=== PATIENT | female | born 2005 | race Caucasian/White ===

== ENCOUNTER 2025-02-01 18:04 | Emergency (ER) | payer OTHER, SELFPAY ==
[2025-02-01 19:20] LABS: Specific Gravity < 1.005 (1.005-1.030); Urine Bilirubin NEGATIVE (Negative); Urine Blood Negative (Negative); Urine Clarity Clear (Clear); Urine Color Colorless (Yellow); Urine Glucose NEGATIVE (Negative); Urine Ketones NEGATIVE (Negative); Urine Microscopic Reflex YN NO UMIC; Urine Nitrite NEGATIVE (Negative); Urine Protein NEGATIVE (Negative); Urine Urobilinogen Normal (Normal)
[2025-02-01 19:33] LABS: Specific Gravity < 1.005 (1.005-1.030)
[2025-02-01] MEDS ORDERED: ACETAMINOPHEN 500 MG TAB ONE (19:42)
[2025-02-01 20:05] LABS: Absolute Basophils 0.1 K/uL (0-0.5); Absolute Eosinophils 0.1 K/uL (0-0.5); Absolute Lymphocytes (CBC) 2.2 K/uL (0.7-4.9); Absolute Monocytes 0.6 K/uL (0.1-1.3); Absolute Neutrophil 8.6 K/uL (1.8-8.0); Basophils % 1.1 % (0-1.3); Eosinophils % 0.7 % (0-4.4); Hematocrit 27.5 % (36.0-45.0); Hemoglobin 9.9 g/dL (12.0-15.0); Lymphocytes % 18.8 % (15.3-44.8); MCH 31.6 pg (27.0-35.0); MCV 87.8 fL (80-100); MPV 8.1 fL (7.6-11.3); Monocytes % 5.5 % (3.3-12.3); Neutrophils % 73.9 % (41.7-73.7); Platelets 229 thou/uL (152-406); RBC Red Blood Cell Count 3.14 M/uL (3.86-4.86); Red Cell Distribution Width 13.4 % (12.1-15.2)
[2025-02-01 20:46] LABS: Anion Gap 8.4 mEq/L (5.0-15.0); Potassium 3.4 mEq/L (3.5-5.1)
[2025-02-01] MEDS ORDERED: NA CHLORIDE 0.9% 500 ML ONE (20:46)
[2025-02-01] MEDS ORDERED: POTASSIUM 25 MEQ EFFERV TAB ONE (21:16)
--- NOTE | 2025-02-01 21:18 | RAD REPORT ---
EXAM:OB Limited . CLINICAL HISTORY: with abdominal pain. Abd pain;Vaginal bleeding TECHNIQUE: Limited OB ultrasound performed. FINDINGS: Single live intrauterine fetus is present. Estimated gestational age is 16 weeks 3 days, SUZE . Heart rate is 143 bpm. The placenta is posterior. Amniotic fluid volume is subjectively normal. IMPRESSION: No acute finding is evident.
--- NOTE | 2025-02-01 21:28 | EDPHYS ---
Physician Documentation [facility] Name: Suze Dupree Age: 19 yrs Sex: Female : 2005 Arrival Date: 02/01/2025 Time: 18:04 Bed 11 Private MD: ED Physician Kain Simpson HPI: 02/01 18:45 This 19 yrs old Female presents to ER via Ambulatory with complaints of Abdominal Pain, cp Vaginal Bleeding, Headache. 18:45 The patient presents with abdominal pain right lower quadrant. Onset: The cp symptoms/episode began/occurred 2 week(s) ago. 18:45 The symptoms do not radiate. Associated signs and symptoms: Pertinent positives: cp possible , vaginal spotting that started today. 18:45 Severity of pain: in the emergency department the pain is unchanged despite home cp interventions. 18:45 Patient reports LMP was in December. Has not taken home . cp Historical: - Allergies: 18:33 No Known Allergies; iw - Home Meds: 18:33 None [Active]; iw - PMHx: 18:33 None; iw - PSHx: 18:33 Appendectomy; iw - Immunization history:: Adult Immunizations not up to date. - Infectious Disease History:: Denies. - Social history:: Smoking status: Reported history of juuling and/or vaping. ROS: 18:50 Eyes: Negative for injury, pain, redness, and discharge, cp 18:50 Constitutional: Negative for body aches, chills, fever, poor PO intake, 18:50 ENT: Negative for drainage from ear(s), ear pain, sore throat, difficulty swallowing, difficulty handling secretions, 18:50 Cardiovascular: Negative for chest pain, edema, palpitations, 18:50 Respiratory: Negative for cough, shortness of breath, wheezing, 18:50 Abdomen/GI: Positive for abdominal pain, Negative for nausea, vomiting, and diarrhea, 18:50 Back: Negative for pain at rest, pain with movement, 18:50 : Positive for vaginal bleeding, Negative for urinary symptoms, 18:50 Neuro: Positive for headache, Negative for altered mental status, dizziness, syncope, near syncope, weakness, 18:50 All other systems are negative, Exam: 18:55 Constitutional: The patient appears in no acute distress, alert, awake, non-toxic, well cp developed, well nourished, 18:55 Head/Face: Normocephalic, atraumatic. cp 18:55 Eyes: Periorbital structures: appear normal, Sclera: no appreciated abnormality, Lids and lashes: appear normal, bilaterally, 18:55 ENT: External ear(s): are unremarkable, Nose: is normal, Mouth: Lips: moist, Oral mucosa: moist, Posterior pharynx: Airway: no evidence of obstruction, patent, 18:55 Chest/axilla: Inspection: normal, 18:55 Cardiovascular: Rate: normal, Rhythm: regular, 18:55 Respiratory: the patient does not display signs of respiratory distress, Respirations: normal, no use of accessory muscles, no retractions, labored breathing, is not present, Breath sounds: are clear throughout, no decreased breath sounds, no stridor, no wheezing, 18:55 Abdomen/GI: Inspection: abdomen appears normal, Bowel sounds: active, all quadrants, Palpation: soft, in all quadrants, mild abdominal tenderness, in the right lower quadrant and left lower quadrant, rebound tenderness, is not appreciated, involuntary guarding, is not appreciated, 18:55 Back: CVA tenderness, is absent, 18:55 Neuro: Orientation: to person, place \T\ time. Mentation: is normal, Motor: moves all fours, strength is normal, Sensation: is normal, Vital Signs: 18:32 BP 108 / 65; Pulse 66; Resp 16; Pulse Ox 100% on R/A; Weight 47.17 kg; Height 4 ft. 11 iw in. ; Pain 5/10; 19:16 BP 101 / 66; Pulse 69; Resp 17; Pulse Ox 99% ; jj7 20:30 BP 90 / 60; Pulse 70; Resp 17; Pulse Ox 98% ; jj7 21:30 BP 100 / 62; Pulse 73; Resp 17; Pulse Ox 98% ; jj7 21:48 BP 95 / 61; Pulse 72; Resp 18; Temp 98.1; Pulse Ox 100% ; Pain 0/10; jj7 18:32 Body Mass Index 21.00 (47.17 kg, 149.86 cm) - Percentile 24.5 % iw 18:32 Pain Scale: Adult iw 21:48 Pain Scale: Adult jj7 MDM: 18:33 Medical Screening Exam initiated cp 20:00 Differential diagnosis: Ectopic , non-specific abd pain, Ovarian Torsion, cp Pelvic Inflammatory Disease, Pyelonephritis, Ureterolithiasis, urinary tract infection. 21:28 Data reviewed: vital signs, nurses notes, lab test result(s), radiologic studies, cp ultrasound, and as a result, I will discharge patient. 21:28 I considered the following discharge prescriptions or medication management in the emergency department Medications were administered in the Emergency Department. See MAR. 21:28 Counseling: I had a detailed discussion with the patient and/or guardian regarding the historical points, exam findings, and any diagnostic results supporting the discharge/admit diagnosis, lab results, radiology results, the need for outpatient follow up, an OB/Gyne specialist, to return to the emergency department if symptoms worsen or persist or if there are any questions or concerns that arise at home. Special discussion: Based on the patient's Hx, exam, and Dx evaluation, there is no indication for emergent surgery or inpatient Tx. It is understood by the patient/guardian that if the Sx's persist or worsen they need to return immediately for re-evaluation. 02/01 18:43 Order name: Abo/rh Typing; Complete Time: 20:59 02/01 21:00 Interpretation: Reviewed. 02/01 18:43 Order name: Basic Metabolic Panel 02/01 21:00 Interpretation: Normal except: K 3.4; BUN 5; CRE 0.48. 02/01 18:43 Order name: CBC with Diff; Complete Time: 20:19 02/01 21:00 Interpretation: Normal except: WBC 11.70; RBC 3.14; HGB 9.9; HCT 27.5; PAUL% 73.9; NEUT cp A 8.6. 02/01 18:43 Order name: Test, Urine; Complete Time: 19:37 02/01 19:37 Interpretation: Reviewed. 02/01 18:43 Order name: Quantitative Hcg 02/01 18:43 Order name: Urinalysis w/ reflexes; Complete Time: 19:37 02/01 21:00 Interpretation: Reviewed. 02/01 20:37 Order name: OB Limited; Complete Time: 21:23 EDMS 02/01 21:23 Interpretation: Report reviewed. 02/01 18:43 Order name: IV Saline Lock; Complete Time: 19:57 02/01 18:43 Order name: Labs collected and sent; Complete Time: 19:57 cp 02/01 18:43 Order name: NPO; Complete Time: 19:57 cp Administered Medications: 19:50 Drug: Acetaminophen PO 500 mg PO once Route: PO; 21:02 Follow up: Response: Marked relief of symptoms 21:01 Drug: NS 0.9% IV 500 ml 500 ml IV at 1 bolus once; to be given as a bolus over 30 jj7 minutes Volume: 500 ml; Route: IV; Rate: 1 bolus; Site: left antecubital; 21:50 Follow up: IV Status: Completed infusion 21:27 Drug: Potassium PO Effervescent Tablet 25 mEq PO once; dissolve in 4 ounces of water or jj7 juice Route: PO; 21:50 Follow up: Response: No adverse reaction Disposition Summary: 02/01/25 21:28 Discharge Ordered Notes: Location: Home cp Problem: new cp Symptoms: have improved cp Condition: Stable cp Diagnosis - Threatened cp - 16 weeks gestation of cp - Other specified related conditions, second trimester cp - Abdominal pain, unspecified cp - Anemia, unspecified cp Followup: cp - With: Private Physician - When: 5 - 6 days - Reason: Recheck today's complaints Discharge Instructions: - Discharge Summary Sheet cp - Abdominal Pain During cp - Care cp - Threatened Miscarriage cp - Vaginal Bleeding During , Second Trimester cp - and the Partner's Role cp - Activity Restriction During cp Forms: - Medication Reconciliation Form cp - Antibiotic Education cp - Prescription Opioid Use cp - Patient Portal Instructions cp - Leadership Thank You Letter cp Prescriptions: - Ferrous Sulfate 325 mg (65 mg Iron) Oral tablet - take 1 tablet ORAL route once daily; 20 tablet; Refills: 0, Product Selection cp Permitted Addendum: 02/03/2025 08:58 Co-signature as Attending Physician, Kain Simpson MD I agree with the assessment and c swain plan of care. Signatures: Dispatcher [employer] Kain Vance MD MD cha Williams, Irene, RN RN Kain Sheridan PA PA cp Johnson, Juwairiyah, RN RN jj7 Corrections: (The following items were deleted from the chart) 02/01 18:44 18:44 ABO/RH TYPING+BB.LAB.BRZ ordered. EDMS EDMS 18:44 18:44 BASIC METABOLIC PANEL+C.LAB.BRZ ordered. EDMS EDMS 18:44 18:44 CBC+H.LAB.BRZ ordered. EDMS EDMS 18:44 18:44 Test, Urine+UC.LAB.BRZ ordered. EDMS EDMS 18:44 18:44 QUANTITATIVE HCG+C.LAB.BRZ ordered. EDMS EDMS 18:44 18:44 Urinalysis+U.LAB.BRZ ordered. EDMS EDMS 20:37 20:20 Transvaginal Ob+US.RAD.BRZ ordered. EDMS EDMS 02/02 18:14 04 18:45 The patient presents with abdominal pain vaginal bleeding. cp cp 02/02 21: 21:00 Constitutional: Negative for body aches, chills, fever, poor PO intake, cp cp : 21:00 Cardiovascular: Negative for chest pain, edema, palpitations, cp cp : 21:00 Respiratory: Negative for cough, shortness of breath, wheezing, cp cp : 21:00 Abdomen/GI: Positive for abdominal pain, Negative for nausea, vomiting, and cp diarrhea, cp : 21:00 Eyes: Negative for injury, pain, redness, and discharge, cp cp : 21:00 ENT: Negative for drainage from ear(s), ear pain, sore throat, difficulty cp swallowing, difficulty handling secretions, cp : 21:00 : Positive for vaginal bleeding, Negative for urinary symptoms, cp cp : 21:00 Back: Negative for pain at rest, pain with movement, cp cp : 21:00 Neuro: Positive for headache, Negative for altered mental status, dizziness, cp syncope, near syncope, weakness, cp : 21:00 All other systems are negative, cp cp
--- NOTE | 2025-02-01 21:28 | ER ---
Nurse's Notes [facility] Name: Suze Dupree Age: 19 yrs Sex: Female : 2005 Arrival Date: 02/01/2025 Time: 18:04 Bed 11 Private MD: Diagnosis: Threatened ;16 weeks gestation of ;Other specified related conditions, second trimester;Abdominal pain, unspecified;Anemia, unspecified Presentation: 02/01 18:32 Chief complaint: Patient states: RLQ pain X 2 weeks, had some spotting today , thinks iw she could be . LMP was beginning of December. Coronavirus screen: At this time, the client does not indicate any symptoms associated with coronavirus-19. Ebola Screen: No symptoms or risks identified at this time. Initial Sepsis Screen: Does the patient meet any 2 criteria? No. Patient's initial sepsis screen is negative. Does the patient have a suspected source of infection? No. Patient's initial sepsis screen is negative. Risk Assessment: Do you want to hurt yourself or someone else? Patient reports no desire to harm self or others. Onset of symptoms was January 18, 2025. 18:32 Method Of Arrival: Ambulatory iw 18:32 Acuity: IRISH 3 iw Historical: - Allergies: 18:33 No Known Allergies; iw - Home Meds: 18:33 None [Active]; iw - PMHx: 18:33 None; iw - PSHx: 18:33 Appendectomy; iw - Immunization history:: Adult Immunizations not up to date. - Infectious Disease History:: Denies. - Social history:: Smoking status: Reported history of juuling and/or vaping. Screenin:[facility] ED Fall Risk Assessment (Adult) History of falling in the last 3 months, jj7 including since admission No falls in past 3 months (0 pts) Confusion or Disorientation No (0 pts) Intoxicated or Sedated No (0 pts) Impaired Gait No (0 pts) Mobility Assist Device Used No (0 pt) Altered Elimination No (0 pt) Score/Fall Risk Level 0 - 2 = Low Risk Oriented to surroundings, Maintained a safe environment, Educated pt \T\ family on fall prevention, incl call for assistance when getting out of bed, Assessed \T\ reinforced patient's understanding of fall precautions. Abuse screen: Denies threats or abuse. Nutritional screening: No deficits noted. Tuberculosis screening: No symptoms or risk factors identified. Assessment: 19:16 Reassessment: ASSUMED CARE OF PT. PT SITTING IN BED. VS STABLE. CALL GONZALEZ IN REACH. jj7 FAMILY AT BEDSIDE. General: Appears in no apparent distress. comfortable, Behavior is calm, cooperative, appropriate for age. Pain: Complains of pain in right lower quadrant. GI: Bowel sounds present X 4 quads. Abd is soft X 4 quads Abdomen is tender to palpation in right lower quadrant. Vital Signs: 18:32 BP 108 / 65; Pulse 66; Resp 16; Pulse Ox 100% on R/A; Weight 47.17 kg; Height 4 ft. 11 iw in. ; Pain 5/10; 19:16 BP 101 / 66; Pulse 69; Resp 17; Pulse Ox 99% ; jj7 20:30 BP 90 / 60; Pulse 70; Resp 17; Pulse Ox 98% ; jj7 21:30 BP 100 / 62; Pulse 73; Resp 17; Pulse Ox 98% ; jj7 21:48 BP 95 / 61; Pulse 72; Resp 18; Temp 98.1; Pulse Ox 100% ; Pain 0/10; jj7 18:32 Body Mass Index 21.00 (47.17 kg, 149.86 cm) - Percentile 24.5 % iw 18:32 Pain Scale: Adult iw 21:48 Pain Scale: Adult jj7 ED Course: 18:07 Patient arrived in ED. im 18:08 Kain Chang PA is PHCP. cp 18:08 Tara Alvarado MD is Attending Physician. cp 18:33 Triage completed. iw 18:34 Arm band placed on. iw 19:16 Azeem Teran, CHAYO is Primary Nurse. jj7 19:16 Patient has correct armband on for positive identification. Bed in low position. Call jj7 light in reach. Adult w/ patient. Provided Education on: USE OF CALL GONZALEZ. Warm blanket given. 19:55 Inserted saline lock: 20 gauge in left antecubital area, using aseptic technique. Blood jj7 collected. Flushed with 10 mL NS. 20:53 OB Limited In Process Unspecified. EDMS 20:59 Kain Simpson MD is Attending Physician. cp 21:49 No provider procedures requiring assistance completed. IV discontinued, intact, jj7 bleeding controlled, No redness/swelling at site. Pressure dressing applied. Administered Medications: 19:50 Drug: Acetaminophen PO 500 mg PO once Route: PO; 7 21:02 Follow up: Response: Marked relief of symptoms j 21:01 Drug: NS 0.9% IV 500 ml 500 ml IV at 1 bolus once; to be given as a bolus over 30 jj7 minutes Volume: 500 ml; Route: IV; Rate: 1 bolus; Site: left antecubital; 21:50 Follow up: IV Status: Completed infusion j 21:27 Drug: Potassium PO Effervescent Tablet 25 mEq PO once; dissolve in 4 ounces of water or jj7 juice Route: PO; 21:50 Follow up: Response: No adverse reaction Medication: 19:16 VIS not applicable for this client. Outcome: 21:28 Discharge ordered by . cullen 21:49 Discharged to home ambulatory, with significant other, jj7 21:49 Condition: improved 21:49 Discharge instructions given to patient, family, Instructed on discharge instructions, follow up and referral plans. medication usage, Demonstrated understanding of instructions, follow-up care, medications, Prescriptions given X 1, 21:50 Patient left the ED. jj7 Signatures: Dispatcher [employer] EDMS Joanna Alvarado RN Kain Stevenson PA PA cp Johnson, Juwairiyah, RN RN jj7 Estephania Candelaria
[2025-02-01 22:23] VITALS: BP 95/61; TEMP 98.1; O2SAT 100
== END 2025-02-01 21:50 | disposition home or self-care (01) ==
LOC: EDSEX 18:04 → ER 18:04
DX: O20.0 Threatened abortion (principal); O99.012 Anemia complicating pregnancy, second trimester; Z3A.16 16 weeks gestation of pregnancy
CPT/HCPCS: 85025; 80048; 36415; 86900; 81025; 86901; 84702; 81003; 76815; J7040

== ENCOUNTER 2025-02-04 10:56 | Emergency (ER) | payer OTHER ==
--- OUTSIDE RECORDS SUMMARY | 2025-02-04 10:59 | XMS REPORT | Continuity of Care Document ---
Author Name Unknown Address [address] [facility] [place] [address] [facility] Address [address] [facility] [address] [place] [address] Care Team Providers Care Biological Lab Technician Name Role Phone Pcp, Pcp Primary Care Physician Tammy Cooper MD, Bernardo Lange Attending Clinician [phone] James Fatima MD Attending Clinician [phone] JAMES FATIMA Attending Clinician Unavaila ble Payers Payer Name Policy Type Policy Number Effective Date Expirati on Date Source [employer] [id number] 2024 00:00:00 Problems Condition Name Condition Details Condition Category Status Onset Date Resolution Date Last Treatment Date Treating Clinician Comments Source Bipolar affective disorder, currently depressed, mild (CMS/HCC) Bipolar affective disorder, currently depressed, mild (CMS/HCC) Disease Active 2023-10 00:00: 00 Yasmani Damon [facility] Social History Social Habit Start Date Stop Date Quantity Comments Source ASSERTION Possible [facility] Gender identity [facility] Sexual orientation [facility] History of Social function 2024-08-05 00:00:00 2024-08-05 00:00:00 [facility] Smoking Status Start Date Stop Date Source Tobacco smoking consumption unknown [facility] Medications Ordered Medication Name Filled Medication Name Start Date Stop Date Current Medication? Ordering Clinician Indication Dosage Frequency Signature (SIG) Comments Components Source QUEtiapine (SEROquel) 25 MG tablet QUEtiapine (SEROquel) 25 MG tablet 2023-10 00:32: 40 Yes 25mg Take 25 mg by mouth at bedtime. Memjesus Damon [facility] traZODone (Desyrel) 50 MG tablet traZODone (Desyrel) 50 MG tablet 2023-10 00:32: 40 Yes Take by mouth at bedtime. Yasmani Damon [facility] hydrOXYzine HCl (Atarax) 10 MG tablet hydrOXYzine HCl (Atarax) 10 MG tablet 2023-10 00:32: 40 Yes Take by mouth. Yasmani Damon [facility] sodium chloride (NS) 0.9 % flush 10 mL sodium chloride (NS) 0.9 % flush 10 mL 2023-10 23:00: 24 Yes 10mL [Order 1 Start] Name: Insert peripheral IV Signed Summary: Once, On Wed08/04/24 at 2301, For 1 occurrence [Order 1 End] [Order 2 Start] Name: Saline lock IV Signed Summary: Once, On Wed08/04/24 at 2301, For 1 occurrence [Order 2 End] [Order 3 Start] Name: sodium chloride (NS) 0.9 % flush 10 mL Signed Summary: 10 mL, Intravenou s, As needed, line care, Starting on Wed08/04/24 at 2300 [Order 3 End] Yasmani garcia [facility] Vital Signs Vital Name Observation Time Observation Value Comments S ource Systolic blood pressure 2024-08-06 00:27:00 104 mm[Hg] [facility] Diastolic blood pressure 2024-08-06 00:27:00 65 mm[Hg] [facility] Heart rate 2024-08-06 00:27:00 84 /min [facility] Body temperature 2024-08-06 00:27:00 37.17 Ena [facility] Respiratory rate 2024-08-06 00:27:00 17 /min [facility] Oxygen saturation in Arterial blood by Pulse oximetry 2024-08-06 00:27:00 98 /min [facility] Body weight 2024-08-04 22:45:00 47.446 kg [facility] BMI 2024-08-04 22:45:00 21.13 kg/m2 [facility] Body height 2024-08-04 22:45:00 149.9 cm [facility] Systolic blood pressure 2024-08-06 00:27:00 104 mm[Hg] Shanda nunez [facility] Diastolic blood pressure 2024-08-06 00:27:00 65 mm[Hg] Shanda nunez [facility] Heart rate 2024-08-06 00:27:00 84 /min [facility] f[facility] Body temperature 2024-08-06 00:27:00 37.17 Ena [facility] Respiratory rate 2024-08-06 00:27:00 17 /min [facility] Oxygen saturation in Arterial blood by Pulse oximetry 2024-08-06 00:27:00 98 /min Shanda nunez [facility] Body weight 2024-08-04 22:45:00 47.446 kg Michaeljayjay lockett [facility] BMI 2024-08-04 22:45:00 21.13 kg/m2 [facility] Body height 2024-08-04 22:45:00 149.9 cm [facility] Procedures Procedure Date / Time Performed Performing Clinician Source ECG 12-LEAD 2024-08-05 03:47:45 Shakir Gill [facility] UA WITH MICROSCOPIC NO CULTURE 2024-08-05 01:53:00 Shakir Gill [facility] DRUG SCREEN URINE (8 DRUGS) 2024-08-05 01:53:00 Shakir Gill [facility] BETA HCG QUALITATIVE URINE 2024-08-05 01:53:00 Shakir Gill [facility] CORONAVIRUS (COVID-19) [facility] ICU/ISOLATION 2024-08-05 00:23:00 Shakir Gill [facility] BASIC METABOLIC PANEL 2024-08-05 00:18:00 Rancho Gill [facility] HEPATIC FUNCTION PANEL 2024-08-05 00:18:00 Magno Gill [facility] SALICYLATE LEVEL 2024-08-05 00:18:00 Shakir Gill [facility] ACETAMINOPHEN LEVEL 2024-08-05 00:18:00 Maribel Gill [facility] ETHANOL LEVEL 2024-08-05 00:18:00 Shakir Gill [facility] COMPLETE BLOOD COUNT W/DIFF AND PLATELET 2024-08-05 00:18:00 Shakir Gill [facility] COMPLETE BLOOD COUNT 2024-08-05 00:18:00 BridgetCyril [facility] AUTOMATED DIFFERENTIAL 2024-08-05 00:18:00 Magno Gill [facility] ECG 12 lead (arrhythmia) Tong saenz [facility] Encounters Start Date/Time End Date/Time Encounter Type Admission Type Attending Clinicians Care Facility Care Department Encounter ID Source 2024-08-04 23:04:00 2024-08-06 00:31:[address] [facility] [id number] Yasmani garcia [place] 2024-08-04 23:04:00 2024-08-06 00:31:00 Emergency Emergency [facility] General Medicine [id number] [facility] Consult Notes Date/Time Note Provider Source 2024-08-05 07:51:28 PRT COMPREHENSIVE ASSESSMENT Introduction The Patient is a 19-year-old white, female presents to [facility] Emergency Room by walk-in due to increased AVH. The Psychiatric Response Team (PRT) was consulted for psychiatric evaluation and assistance with disposition to an appropriate level of care. The source of this information include: interview with the patient, consultation with the medical staff, and review of the medical chart. The evaluation conducted by Dali Esparza LCSW. Presentation This Clinician evaluated the Patient bedside in the [facility] ER, Room 12. The Patient was found to be in the hospital room, dressed in maroon scrubs, laying in her hospital bed. This Clinician introduced herself and explained her role with the PRT, as well as the process of evaluation. The patient agreed and was cooperative. Patient exhibits speech that is soft. Pt did not appear to be responding to internal stimuli. Mood presents as depressed. Affect is withdrawn/flat. Pts thinking is organized/logical and thought content logical. Cognitive functioning appears intact. This Patient is oriented X4. Insight into problems fair. Judgment appears impaired. Patient's behavior in the session was cooperative/guarded. Patient appears to be a capable historian. Pt has no eye contact. Clinician used unconditional positive regard, and warm acceptance to help establish trust with the patient. Empathy and support were provided for the patient's expression of thoughts and feelings during the evaluation. Current Hospitalization "I'm hearing voices and seeing stuff". She reports that this has been going for about a week and wants to go inpatient to get medications. She reports that AH was getting worse and then started VH. She reports she's been experiencing paranoia due to getting off drugs last year. Pt has difficulty expanding on sxs and is guarded when asked directly. Pt denies current SI/HI. She endorses current AH. Risk factors: current AVH, previous hospitalizations, non compliance with outpatient, lack on insight. Protective factors: supportive family, sabianist beliefs, hobbies, willingness to be treated. Based on current risk factors and presentation pt is recommended for voluntary transfer. MD, RN and clinician are agreeable. Behavior: Withdrawn Mood/Affect: Superficial Judgement: Impaired Mood/Affect: Superficial Symptomology Psychotic Symptoms: Visual hallucinations, Auditory hallucinations, Depressive Symptoms: Insomnia, Decrease in appetite/weight loss/weight gain, or hypersomnia SI: Pt denies SI current or hx. SH: She reports that "a long time ago" cutting on her thighs. She reports that this was about 1-2 yrs ago. Suicide attempts: denies HI: Pt denies current or hx. Psychosis: Endorses current AVH. She reports AH whispering in her ear constantly and makes it hard to focus in conversations. Denies CAH and reports that they tend to just talk about people. VH she reports shadows. She reports that now that she is off of drugs she has paranoia that people are trying to kid nap her or shoot at her. Other sxs: She reports that sleep has been bad due to staying up all night listening to voices. Appetite is okay but struggles when people are watching. Energy is okay. Interest/pleasure, and motivation are okay. She reports that the voices and paranoia are what keep her from going out. Diagnosis Patient Information Lives with aunt in [place], [place]. : unmarried Children: none Siblings: "I have a lot of siblings" and does not expand. Employed: unemployed SSDI/SSI: none Legal: Reports was in [facility] for about 1 mos and has been out for "a few mo". : none Education: 10th grade dropped out and started GED has not finished yet. Ethnicity: Not or Location Type: ER Current Situation: Psychosis Current Situation Details: Pt presents to ED due to worsening AH over the last couple of weeks and new VH. Denies SI/HI. Patient Displaying Harmful Behavior in the Hospital: N/A Social History Support Structure: cousins and brothers Spiritual connections: Muslim Activities, coping/healthy habits: like to draw and listen to music Cultural Factors Sex at : Female What is Your Current Gender Identity?: Identifies as female Race: White Cultural Impact on Treatment: None reported Living Situation Psychosocial History Living Situation: Private residence Household Composition: pt lives with her aunt Home Environment: Good Were housing issues addressed and/or referrals given?: No Caregiver Trauma History Trauma Trauma (Experienced or Witnessed): None reported Mental Health/Substance Use History Current UDS/BAL negative. Previous hospitalizations: She reports that he has been hospitalized 4 times for mental health but didn't want to continue her medications. Outpatient care: Sees a psychiatrist every mo. Medications: stopped taking zoloft , trazadone and seroquel. Previous dx: Bipolar. Reports that doctor suspects schizophrenia. 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 Rehab: none went to [facility] Family hx: parents- polysubstance Provider/Treatment History Provider History Have you ever been diagnosed with mental health condition?: Yes Explain: Bipolar. She reports that rcently her psychiatrist mentioned possible schizophrenia Are you currently connected with mental health providers?: Yes Psychotherapist: none Psychotherapist Contact Information: none Psychiatrist: [facility] Contact Information: unknown Have you ever been hospitalized at a Psychiatric Facility?: Yes Explain: Pt presents that has been hospitalized 4 times How many times have you been hospitalized?: see above Family Psychiatric History Family Psychiatric History Family History of Psychiatric Illness: Yes Relationship/Diagnosis: She reports that multiple people in her family have depression, anxiety, ADD, ADHD and Bipolar Additional Screenings AUDIT Alcohol Screening Score: DAST-10 Score: PRT Suicide Screening Violence Screening Sources of Information: Sources of Information Name Contact Relationship Comments Clinical records EHR review Clinical interview Usha Dupree self Legal Guardian: Name/Agency Contact Info Relationship Comments Usha Dupree [phone] Self Collateral Summary Pt does not wish to provide collateral information. Safety Plan Patient Able to Participate in Safety Plan: Patient Able to Participate in Safety Planning: No Evidence of Suicide Risk Age, Education, Hx of depression, Family hx of severe mental illness/suicide, Legal issues/Incarcerations, Mood and anxiety difficulties, Previous psych hospitalizations, Psychiatric illness Access to Lethal Means No Does individual have access to lethal means?: No Static Risks Age, Education, Hx of depression, Family hx of severe mental illness/suicide, Legal issues/Incarcerations, Mood and anxiety difficulties, Previous psych hospitalizations, Psychiatric illness Dynamic Risks Unemployment, Impulsivity (Poor compliance with medication/psych treatment) Protective Factors Hobbies, Supportive family/friends, Nondenominational/spiritural beliefs, Willingness to be treated Clinical Summary/Impression Medical Team Huddle: This clinician completed a medical team huddle with MD Rose and CHAYO Rodríguez (individually) on 08/05/24. The following recommendations and education provided: Behavioral Continuous Visual Monitoring Partner (CVMP): It was recommended to staff to continue use of Behavioral CVMP, as clinician is a working on transfer for pt to be sent to a psychiatric hospital for further stabilization. Behavioral CVMP is encouraged to monitor patient and develop rapport with pt to assist in sustaining their current crisis. Family/Friend Dynamics: Staff was encouraged to continue to allow the patient's support system to visit with the patient if they were to come to the hospital, but they were reminded that the visitation could be terminated if the patient became upset or agitated. Communication with Patient: The medical team was encouraged to maintain a healing environment in which the patient was able to communicate freely, feel supported or understood, and should be allowed to discuss their emotions without judgment. Psychiatric Safe Room: The patient does require a specific room located away from an exit and their room does require it to be made psychiatrically safe by implementing precautions that limit the patient's access to any possible weapons or items they may use to harm self with during their stay in the hospital. The patient's property should be secured with security. Pt should not be given any utensils and will require finger food trays only. The patient's room should be in the view of the RN station as to minimize the patient's risk of elopement. Environmental Stimuli: The patient's room should remain dimly lit for a more relaxing environment. The patient is able to watch the television if requested, but staff should limit the patient's access to violent or agitating material. The patient should not be allowed to roam the halls as this could increase the chances for the patient to attempt elopement from the hospital. Transfer Status: The patient currently meets criteria to receive inpatient mental health treatment and will be a voluntary transfer. The nurse was provided education regarding the transfer process and will update the pt and their family on the status of any consults or transfers. Medication Recommendations: Medication recommendations were not requested at this time. Clinical Recommendation: Voluntary Transfer recommended to MD Rose and CHAYO Rodríguez (individually). Pt's symptoms consistent with Bipolar disorder. Patient has been experiencing elevated amounts of stress and symptoms of lack of need for sleep, psychosis. Patient is a danger to themselves at this time. Their affect presents as flat/withdrawn. This patient can benefit from further monitoring and psychiatric hospitalization to stabilize their presentation. In addition, they have family support but is unable to engage in safety planning. Should the medical team need additional support in caring for this patient or have questions regarding this pt.'s care, please page the Psych Response Team. Voluntary patients who state that they no longer want to transfer to a psychiatric hospital MUST be detained until PRT can re-evaluate the patient or the decision to commit the patient has been made. Recommendation Disposition Plan: Transfer [facility] Recommendation: Continued Suicide Risk Level Stratification: No significant risk currently identified Team Huddle Treatment Team Huddle Completed?: Yes Treatment Team Huddle Barriers: None Treatment Team Huddle Details: MD RN (individually) Attending MD: MD Rose Attending MD: MD Rose RN: RN Mansoor Electronic Science Teacher: ARACELIS Labor Relations Manager: ARACELIS Shanda Damon Notes Date/Time Note Provider Source 2024-08-06 00:35:23 [facility] * Calculated C-SSRS Risk Score (Lifetime/Recent) Answer Date of Assessment Author No Risk Indicated 08/05/2024 9:57 PM CDT Walter Dominguez RN * Isabella Suicide Severity Rating Scale (Screener/Recent Self-Report) Question Answer Date of Assessment Author 1. Wish to be (Past 1 Month) No 024 9:57 PM CDT Walter Navarro, CHAYO 2. Non-Specific Active Suici brenden Thoughts (Past 1 Month) No 08/05/2024 9:57 PM CDT Honey Navarro, RN 6. Suicidal Behavior (Lifetime) No 9:57 PM CDT Walter Navarro, CHAYO [id number] 00:35:23Pending Results Health Maintenance Due Date Last Done Comments Varicella Vaccines (1 of 2 - 13+ 2-dose series) 2018 HPV Vaccines (1 - 3-dose series) 2020 DTaP/Tdap/Td Vaccines (1 - Tdap) 2024 Hepatitis B Vaccines (1 of 3 - 19+ 3-dose series) 2024 Influenza Vaccine (#1) 2024 HIB Vaccines Aged Out No longer eligi ble based on patient's age to complete this topic Hepatitis A Vaccines Aged Out No long er eligible based on patient's age to complete this topic IPV Vaccines Aged Out No longer eligi ble based on patient's age to complete this topic Meningococcal Vaccine Aged Out No carley daija eligible based on patient's age to complete this topic Pneumococcal Vaccine: Pediat rics (0 to 5 Years) and At-Risk Patients (6 to 64 Years) Aged Out No longer eligible b ased on patient's age to complete this topic Rotavirus Vaccines Aged Out No longer eligible based on patient's age to complete this topic [facility] [id number] 00:35:23 Diagnosis Bipolar affective disorder, currently depressed, mild (CMS/HCC) (HCC) - Primary Bipolar I disorder, most recent episode (or current) depressed, mild Bipolar affective disorder, currently depressed, mild (CMS/HCC) (HCC) [F31.31] Bipolar I disorder, most recent episode (or current) depressed, mild [facility] [id number] 00:35:23 [facility] [id number] 22:38:00 Associated Order(s): ECG 12 lead (arrhythmia) History of Present Illness: Chief Complaint: Patient presents with Psychiatric Evaluation Patient is a 19-year-old female with a history of bipolar disorder as well as chronic auditory hallucinations who presents for worsening hallucinations after stopping her psychiatric medications. Patient states she has been on Zoloft, trazodone, and Seroquel in the past. Patient states she is not having any suicidal thoughts at this time. States she is usually committed to the hospital and gets placed back on her medications until her psychiatric symptoms improved. No nausea or vomiting. No fever or chills. No recent stressing events. Does not smoke, drink, or drugs. History provided by: Patient Patient History History reviewed. No pertinent past medical history. History reviewed. No pertinent surgical history. No family history on file. Social History: Tobacco Use Smoking status: Not on file Smokeless tobacco: Not on file Substance Use Topics Alcohol use: Not on file Drug use: Not on file Review of Systems: Review of Systems Constitutional: Negative for chills and fever. HENT: Negative for ear pain and sore throat. Eyes: Negative for pain and visual disturbance. Respiratory: Negative for cough and shortness of breath. Cardiovascular: Negative for chest pain and palpitations. Gastrointestinal: Negative for abdominal pain and vomiting. Genitourinary: Negative for dysuria and hematuria. Musculoskeletal: Negative for arthralgias and back pain. Skin: Negative for color change and rash. Neurological: Negative for seizures and syncope. Psychiatric/Behavioral: Positive for hallucinations. Negative for agitation and suicidal ideas. The patient is nervous/anxious. All other systems reviewed and are negative. Physical Exam: Vitals and nursing note reviewed. Constitutional: General: She is not in acute distress. Appearance: Normal appearance. HENT: Head: Normocephalic and atraumatic. Eyes: Conjunctiva/sclera: Conjunctivae normal. Pulmonary: Effort: Pulmonary effort is normal. No respiratory distress. Abdominal: General: Abdomen is flat. There is no distension. Musculoskeletal: General: No swelling or deformity. Cervical back: Normal range of motion and neck supple. Skin: General: Skin is warm and dry. Findings: No rash. Neurological: General: No focal deficit present. Mental Status: She is alert. Psychiatric: Attention and Perception: She perceives auditory and visual hallucinations. Mood and Affect: Mood normal. Behavior: Behavior is not agitated or aggressive. Thought Content: Thought content is not paranoid. Thought content does not include homicidal or suicidal ideation. Triage Vitals: BP: 117/87, Heart Rate: 78, Temp: 36.7 ?C (98 ?F), Resp: 18, SpO2: 97 %, Height: 149.9 cm (4' 11"), Weight: 47.4 kg (104 lb 9.6 oz) Last Recorded Vitals: BP: 118/87, Heart Rate: 77, Temp: 36.7 ?C (98.1 ?F), Resp: 18, SpO2: 98 %, Height: 149.9 cm (4' 11"), Weight: 47.4 kg (104 lb 9.6 oz) Procedures Performed: ECG 12 lead (arrhythmia) Performed by: Shakir Gill MD Authorized by: Shakir Gill MD ECG interpreted by ED Physician in the absence of a poultry processor: yes Interpretation: Interpretation: non-specific Rate: ECG rate: 66 ECG rate assessment: normal Rhythm: Rhythm: sinus rhythm Ectopy: Ectopy: none QRS: QRS intervals: Normal ST segments: Details: Nonspecific ST segment changes T waves: Details: Nonspecific T wave changes Comments: Interpreted on 02/04/2024 0350 ED Course : ED Course: as of 08/05/24 0858 Sat Aug 05, 2024 0550 Spoke with psych response. Will see. [MF] ED Course: User Index [MF] Shakir Gill MD Disposition: Medical Decision Making DDX: Bipolar disorder, schizophrenia, schizoaffective disorder, malingering, anxiety, depression Patient has remained calm throughout shift. No events. Patient is awaiting psych response to evaluate. Patient will be handed off to my colleague at shift change. [ ] External notes reviewed [ ] Discussion about imaging: considered/ordered [ x ] DDx considered: see partial list above [ x ] Dx ruled out: see MDM discussion [ ] Prescription considered/given [ x ] Disposition: handoff to Dr. Rose [ ] Social aspects considered: no drug abuse, no PCP, lives alone, care impacted by: [ ] Document chronic illness and how it impacted diagnosis/management * * * ELEMENTS OF MEDICAL DECISION MAKING * * * PROBLEMS ADDRESSED [ ] Patient presents with a problem that potentially represents a highly morbid condition with a possible threat to life or bodily function DATA REVIEWED AND ANALYZED Category 1: Test, documents, or independent historians Additional history was required and obtained from: [ ] Family/Friends [ ] EMS [ ] PCP/Specialist [ ] Other: Prior documentation reviewed: [ ] H&P [ ] Clinic [ ] Wildlife Control Agent [ ] DC Summary [ ] Procedure [ ] Other: Prior test results reviewed: [ ] Serum labs [ ] Radiographs [ ] Other: [ x] Tests were ordered and the results were independently reviewed by me [ ] Tests considered but not ordered: Category 2: Independent interpretation of tests [ ] Some of the tests were independently interpreted by me Category 3: Discussion of management with another professional [ ] Wildlife Control Agent [ ] Admitting service [ ] Radiology [ x] Behavioral Health [ ] Other: PATIENT MANAGEMENT [ ] Considered hospitalization or emergent surgery/procedure [ ] Controlled parenteral medications or medications requiring intensive monitoring were administered [ ] Other: All incidental findings on labwork and imaging were discussed with the patient and they were given copy of all results to discuss with their PCP for further management. Results: Disposition: Amount and/or Complexity of Data Reviewed Labs: ordered. Decision-making details documented in ED Course. Radiology: ordered and independent interpretation performed. Decision-making details documented in ED Course. ECG/medicine tests: ordered and independent interpretation performed. Decision-making details documented in ED Course. Risk Prescription drug management. Scoring Tools Shakir Gill MD 08/05/24 0858 [id number] 22:38:00 I, Bernardo Rose MD, have assumed care of this patient from Dr. Gill. 19 y/o bipolar disorder here with auditory hallucinations. Medically cleared. Pending psych response evaluation. No acute events during my shift Seen by psych response, recommends voluntary transfer. Signed out to Dr. Fatima pending placement Bernardo Rose MD 08/05/24 1420 Emergency Medicine PhysicianLakenney Damon
--- NOTE | 2025-02-04 12:25 | RAD REPORT ---
EXAM:OB Limited CLINICAL HISTORY: with abdominal pain TECHNIQUE: Limited OB ultrasound performed Comparison: February 01, 2025 FINDINGS: Single live intrauterine in cephalic presentation. Amniotic fluid normal. Cervix 3.5 cm. Placenta posterior. No retroplacental/subchorionic bleed. 1.5 cm placental smith present. Cardiac activity 144 bpm. Femur length 2.2 cm 16 weeks 4 days. The right and left adnexa unremarkable IMPRESSION: Single live intrauterine with an estimated gestational age 16 weeks 4 days SUZE 07/18/2025 No significant abnormality is displayed. If a survey is desired it should to be performed in approximately 1 1/2 weeks.
[2025-02-04 12:26] LABS: Specific Gravity 1.012 (1.005-1.030)
--- NOTE | 2025-02-04 12:33 | EDPHYS ---
Physician Documentation [facility] Name: Suze Dupree Age: 19 yrs Sex: Female : 2005 Arrival Date: 02/04/2025 Time: 10:56 Bed 13 Private MD: ED Physician Kain Simpson HPI: 02/04 11:11 This 19 yrs old Female presents to ER via Ambulatory with complaints of shay CONCERNS. 11:11 The patient presents with pain. Associated signs and symptoms: Pertinent positives: shay cramping. Severity of symptoms: At their worst the symptoms were mild, in the emergency department the symptoms have improved, mildly. The estimated gestational age is 16 weeks. 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 - Infectious Disease History:: Denies. - Social history:: Smoking status: Patient denies any tobacco usage or history of. ROS: 11:19 Constitutional: Negative for fever, chills, and weight loss, Eyes: Negative for injury, shay pain, redness, and discharge, ENT: Negative for injury, pain, and discharge, Neck: Negative for injury, pain, and swelling, Cardiovascular: Negative for chest pain, palpitations, and edema, Respiratory: Negative for shortness of breath, cough, wheezing, and pleuritic chest pain, Back: Negative for injury and pain, MS/Extremity: Negative for injury and deformity, Skin: Negative for injury, rash, and discoloration, Neuro: Negative for headache, weakness, numbness, tingling, and seizure, Psych: Negative for depression, anxiety, suicide ideation, homicidal ideation, and hallucinations, Allergy/Immunology: Negative for hives, rash, and allergies, Endocrine: Negative for neck swelling, polydipsia, polyuria, polyphagia, and marked weight changes, Hematologic/Lymphatic: Negative for swollen nodes, abnormal bleeding, and unusual bruising, 11:19 Abdomen/GI: Positive for abdominal cramps, Exam: 11:19 Constitutional: This is a well developed, well nourished patient who is awake, alert, shay and in no acute distress. Head/Face: Normocephalic, atraumatic. Eyes: Pupils equal round and reactive to light, extra-ocular motions intact. Lids and lashes normal. Conjunctiva and sclera are non-icteric and not injected. Cornea within normal limits. Periorbital areas with no swelling, redness, or edema. ENT: Nares patent. No nasal discharge, no septal abnormalities noted. Tympanic membranes are normal and external auditory canals are clear. Oropharynx with no redness, swelling, or masses, exudates, or evidence of obstruction, uvula midline. Mucous membranes moist. Neck: Trachea midline, no thyromegaly or masses palpated, and no cervical lymphadenopathy. Supple, full range of motion without nuchal rigidity, or vertebral point tenderness. No Meningismus. Chest/axilla: Normal chest wall appearance and motion. Nontender with no deformity. No lesions are appreciated. Cardiovascular: Regular rate and rhythm with a normal S1 and S2. No gallops, murmurs, or rubs. Normal PMI, no JVD. No pulse deficits. Respiratory: Lungs have equal breath sounds bilaterally, clear to auscultation and percussion. No rales, rhonchi or wheezes noted. No increased work of breathing, no retractions or nasal flaring. Back: No spinal tenderness. No costovertebral tenderness. Full range of motion. Skin: Warm, dry with normal turgor. Normal color with no rashes, no lesions, and no evidence of cellulitis. MS/ Extremity: Pulses equal, no cyanosis. Neurovascular intact. Full, normal range of motion., bilateral aka Neuro: Awake and alert, GCS 15, oriented to person, place, time, and situation. Cranial nerves II-XII grossly intact. Motor strength 5/5 in all extremities. Sensory grossly intact. Cerebellar exam normal. Normal gait. Psych: Awake, alert, with orientation to person, place and time. Behavior, mood, and affect are within normal limits. 11:19 Abdomen/GI: Inspection: distension, gravid appearance, is noted, Bowel sounds: normal, Palpation: abdomen is soft and non-tender, Liver: no appreciated palpable abnormalities, Hernia: not appreciated, Vital Signs: 11:08 BP 97 / 55; Pulse 63; Resp 16; Temp 98; Pulse Ox 97% ; Weight 47.63 kg; Height 4 ft. 11 bp in. ; 11:08 Body Mass Index 21.21 (47.63 kg, 149.86 cm) - Percentile 44.1 % bp MDM: 11:01 Medical Screening Exam initiated shay 11:21 Differential diagnosis: nonspecific abdominal pain. Data reviewed: vital signs, nurses shay notes, lab test result(s), radiologic studies, ultrasound. Consideration of Admission/Observation Escalation of care including admission/observation considered. I considered the following discharge prescriptions or medication management in the emergency department Medications were administered in the Emergency Department. See MAR. Independent interpretation of the following test(s) in the Emergency Department Radiology Department Ultrasound: My interpretation is preg us. Test considered but Not performed: Labs: no labs. Historians other than the Patient: Spouse/Significant Other: well informed. Care significantly affected by the following chronic conditions: none, g1a0. 02/04 11:02 Order name: Test, Urine; Complete Time: 12:[address] [facility] 02/04 11:02 Order name: Urinalysis w/ reflexes; Complete Time: 12:[address] [facility] 02/04 11:19 Order name: US OB Limited; Complete Time: 12:[address] [facility] 02/04 11:10 Order name: FHT's; Complete Time: 11:29 shay Administered Medications: 11:10 CANCELLED (Duplicate Order): [id number] mg IVP once; dilute with 10 mL 0.9% NaCl; shay give over 2 minutes 11:11 CANCELLED (Duplicate Order): ondansetron 4 mg IVP once; over 2 minutes shay 12:05 Not Given (Physician Discretion): ns 0.9% 1000 ml IV at 1 bolus Per protocol; to be bp given as a bolus over 60 minutes Disposition Summary: 02/04/25 12:33 Discharge Ordered Notes: Location: Home shay Problem: new shay Symptoms: have improved shay Condition: Stable shay Diagnosis - 17 weeks gestation of shay Followup: shay - With: Private Physician - When: 2 - 3 days - Reason: Recheck today's complaints, Continuance of care, Re-evaluation by your physician Discharge Instructions: - Discharge Summary Sheet shay - Care shay - Second Trimester of shay - Second Trimester of , [id number] shay Forms: - Medication Reconciliation Form shay - Antibiotic Education shay - Prescription Opioid Use shay - Patient Portal Instructions shay - Leadership Thank You Letter shay Signatures: Dispatcher [employer] EDMS Calvin, Kain, MD MD shay Michelle, Surjit, RN RN bp Corrections: (The following items were deleted from the chart) 11: 11:02 Famotidine IVP 20 mg IVP once; dilute with 10 mL 0.9% NaCl; give over 2 minutes shay ordered. shay 11:02 IV Saline Lock ordered. [facility] 11:02 Ondansetron IVP 4 mg IVP once; over 2 minutes ordered. [facility] 11:19 OB Limited+US.RAD.BRZ ordered. EDMS EDMS 12:04 11:02 Labs collected and sent ordered. [facility] bp
--- NOTE | 2025-02-04 12:33 | ER ---
Nurse's Notes [facility] Name: Suze Dupree Age: 19 yrs Sex: Female : 2005 Arrival Date: 02/04/2025 Time: 10:56 Bed 13 Private MD: Diagnosis: 17 weeks gestation of Presentation: 02/04 11:08 Chief complaint: Patient states: "I JUST RECENTLY FOUND OUT I WAS . IT'S MY bp FIRST TIME AND I GOT WORRIED. SO I JUST WANTED TO GET CHECKED OUT". Coronavirus screen: At this time, the client does not indicate any symptoms associated with coronavirus-19. Ebola Screen: No symptoms or risks identified at this time. Initial Sepsis Screen: Does the patient meet any 2 criteria? No. Patient's initial sepsis screen is negative. Does the patient have a suspected source of infection? No. Patient's initial sepsis screen is negative. Risk Assessment: Do you want to hurt yourself or someone else? Patient reports no desire to harm self or others. Onset of symptoms is unknown. 11:08 Method Of Arrival: Ambulatory bp 11:08 Acuity: IRISH 3 bp 11:08 Note SEEN FOR SAME 2 DAYS AGO. bp Triage Assessment: 11:10 General: Appears in no apparent distress. Behavior is cooperative, appropriate for age, bp anxious. Pain: Denies pain. EENT: No deficits noted. Neuro: No deficits noted. Cardiovascular: No deficits noted. Respiratory: No deficits noted. GI: No signs and/or symptoms were reported involving the gastrointestinal system. : Denies vaginal bleeding. Derm: No deficits noted. Musculoskeletal: No deficits noted. 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 - Infectious Disease History:: Denies. - Social history:: Smoking status: Patient denies any tobacco usage or history of. Screenin:10 [facility] ED Fall Risk Assessment (Adult) History of falling in the last 3 months, bp including since admission No falls in past 3 months (0 pts) Confusion or Disorientation No (0 pts) Intoxicated or Sedated No (0 pts) Impaired Gait No (0 pts) Mobility Assist Device Used No (0 pt) Altered Elimination No (0 pt) Score/Fall Risk Level 0 - 2 = Low Risk Oriented to surroundings. Abuse screen: Denies threats or abuse. Denies injuries from another. Nutritional screening: No deficits noted. Tuberculosis screening: No symptoms or risk factors identified. Assessment: 11:29 Reassessment: No changes from previously documented assessment. Patient and/or family ll1 updated on plan of care and expected duration. Pain level reassessed. Patient is alert, oriented x 3, equal unlabored respirations, skin warm/dry/pink. Vital Signs: 11:08 BP 97 / 55; Pulse 63; Resp 16; Temp 98; Pulse Ox 97% ; Weight 47.63 kg; Height 4 ft. 11 bp in. ; 11:08 Body Mass Index 21.21 (47.63 kg, 149.86 cm) - Percentile 44.1 % bp Vitals: 11:29 Heart Tones FHT 140, found in pelvic area. ll1 ED Course: 10:59 Patient arrived in ED. al6 10:59 Jyotsna Davis [facility]C [facility] sb4 10:59 Kani iSmpson MD is Attending Physician. sb4 11:01 Kain Simpson MD is Attending Physician. shay 11:08 Surjit Martinez, CHAYO is Primary Nurse. bp 11:10 Triage completed. bp 11:10 Patient has correct armband on for positive identification. bp 11:11 Arm band placed on. bp 11:55 US OB Limited In Process Unspecified. EDMS 13:41 No provider procedures requiring assistance completed. Patient did not have IV access bp during this emergency room visit. Administered Medications: 11:10 CANCELLED (Duplicate Order): [id number] mg IVP once; dilute with 10 mL 0.9% NaCl; shay give over 2 minutes 11:11 CANCELLED (Duplicate Order): ondansetron 4 mg IVP once; over 2 minutes shay 12:05 Not Given (Physician Discretion): ns 0.9% 1000 ml IV at 1 bolus Per protocol; to be bp given as a bolus over 60 minutes Outcome: 12:33 Discharge ordered by . shay 13:27 Patient left the ED. hb 13:41 Discharged to home ambulatory, with family, bp 13:41 Condition: stable 13:41 Discharge instructions given to patient, Instructed on discharge instructions, follow up and referral plans. Demonstrated understanding of instructions, follow-up care, Signatures: Dispatcher [employer] Kain Vance MD MD cha Baxter, Heather, RN RN Surjit Cristobal RN RN bp Lewis, Lynsay, RN RN ll1 Jyotsna Davis, DEE PRICE sb4 Valentina Negron
[2025-02-04 12:39] LABS: Specific Gravity 1.012 (1.005-1.030); Sqamous Epithelial <5 /HPF (None Seen); Urine Bacteria None Seen /HPF (<20); Urine Bilirubin NEGATIVE (Negative); Urine Blood Negative (Negative); Urine Clarity Turbid (Clear); Urine Color Light-Yellow (Yellow); Urine Culture Reflex Order NOT NEEDED; Urine Glucose NEGATIVE (Negative); Urine Ketones NEGATIVE (Negative); Urine Microscopic Reflex YN ORDER UMIC; Urine Mucus Slight /HPF (None Seen); Urine Nitrite NEGATIVE (Negative); Urine Protein NEGATIVE (Negative); Urine RBC <5 /HPF (None Seen); Urine Urobilinogen Normal (Normal); Urine WBC <5 /HPF (<5); Urine pH 7.5 (5.0-7.0)
[2025-02-04 13:32] VITALS: BP 97/55; TEMP 98; O2SAT 97
== END 2025-02-04 13:27 | disposition home or self-care (01) ==
LOC: ER 10:56
DX: O26.892 Other specified pregnancy related conditions, second trimester (principal); Z3A.17 17 weeks gestation of pregnancy
CPT/HCPCS: 76815; 81001; 81025; 99283